=== PATIENT | female | born 1985 | race African-American/Black ===

== ENCOUNTER 2017-01-22 10:17 | Emergency (ER) ==
--- NOTE | 2017-01-22 11:21 | PROVIDER DOCUMENTATION ---
HPI-General Adult - General Source: patient - History of Present Illness -Gen Adult Nature of Presenting Problems: Pt is a 31 yof with bodyaches, achy intermittent lower abd pain and sharp shooting right hip pain intermittently x few days. Denies any recent illness, sick contacts,or injuries. Denies dysuria,n,v,d. Last BM this am. Quality of Pain: reports: aching Severity: reports: moderate Onset/Duration: reports: 3 days ago Timing: reports: still present Similar Symptoms Previously?: No Recently seen or treated by another doctor?: No <Daniel Butts - Last Filed: 01/22/17 11:18> <Marie Collins - Last Filed: 01/22/17 12:23> - General Chief Complaint: Cold Symptoms Stated Complaint: FLU LIKE SX/HIP PX Time Seen by Provider: 01/22/17 11:05 Allergies/Adverse Reactions: Patient Allergies Allergy/AdvReac Type Severity Reaction Status Date / Time Penicillins Allergy RASH Verified 01/22/17 10:35 Sulfa (Sulfonamide Allergy RASH Verified 01/22/17 10:35 Antibiotics) [Sulfa(Sulfonamide Antibiotics)] Home Medications: Home Medication List Medication Instructions Recorded Confirmed Last Taken Type Nitrofurantoin [place]/Macrocryst 100 mg PO BID #20 capsule 01/22/17 Unknown Rx [Macrobid] Review of Systems - Adult - REVIEW OF SYSTEMS - ADULT Constitutional: denies: chills, fever, fatique Eyes: reports: no symptoms reported Ears, Nose, Mouth & Throat: denies: ear pain, sinus problem, throat pain Cardiovascular: denies: chest pain, irregular heart rate, orthopnea Respiratory: reports: no symptoms reported Gastrointestinal: reports: abdominal pain. denies: diarrhea, nausea, vomiting Genitourinary: reports: no symptoms reported Musculoskeletal: reports: see HPI, joint pain, muscle aches. denies: frequent leg cramps, joint swelling Integumentary: reports: no symptoms reported Neurological: reports: no symptoms reported Psychiatric: reports: no symptoms reported Endocrine: reports: no symptoms reported Hematologic/Lymphatic: reports: no symptoms reported Allergic/Immunologic: reports: no symptoms reported All Other Systems: Reviewed and Negative <Daniel Butts - Last Filed: 01/22/17 11:18> Past History - Adult - PAST MEDICAL HISTORY-ADULT Review of Records: reports: Nursing Assessment Review Major Childhood Illnesses: reports: denies history Cardiovascular: reports: denies history Respiratory: reports: denies history Gastrointestinal: reports: other (chronic constipation) Obstetrical/Gynecological: reports: other (previous pregnancies) Genitourinary: reports: denies history Musculoskeletal: reports: denies history Neurological: reports: denies history Endocrine/Immune: reports: other (sickle trait) Other Conditions: reports: denies history - PRIOR SURGERIES/PROCEDURES Surgical/Procedure History: reports: none - IMMUNIZATION STATUS Childhood Immunizations: See Nurse Assessment Flu Vaccine: See Nurse Assessment - FAMILY HISTORY Family History: reviewed, not pertinent - SOCIAL HISTORY Smoking: denies Substance Use: none/never <Daniel Butts - Last Filed: 01/22/17 11:18> Physical Exam-General - PHYSICAL EXAM-ADULT Initial Vital Signs Reviewed: Yes - CONSTITUTIONAL General Appearance: appears well, alert, no apparent distress - EYES Eyes: PERRL/EOMI, pink conjunctivae - HEAD, EARS, NOSE, MOUTH & THROAT HENMT: normocephalic/atraumatic, moist mucous membranes, normal ENT inspection - NECK Neck: non-tender, full range of motion, supple - RESPIRATORY Respiratory: lungs clear, normal breath sounds - CARDIOVASCULAR Cardiovascular: normal peripheral pulses, regular rate, rhythm - GASTROINTESTINAL (ABDOMEN) Abdominal Exam: normal bowel sounds, non tender, soft. negative: rebound, tenderness - MUSCULOSKELETAL Extremity: normal range of motion, normal capillary refill - SKIN Integumentary: normal color, normal turgor, warm/dry - PSYCHIATRIC Psych/Mental Status: normal mood/affect, oriented x 3 <Marie Collins - Last Filed: 01/22/17 12:23> Progress - PLAN OF CARE/RESULTS Progress/Plan/Lab Results: Orders Category Date Time Status DIRECT STREP PL Stat Lab 01/22/17 10:[address] Stat Lab 01/22/17 10:45 Received Vital Signs - 24 hr 01/22/17 10:30 Temperature 98.0 F Pulse Rate 79 Respiratory 20 Rate Blood Pressure 112/76 O2 Sat by Pulse 100 Oximetry Laboratory Tests 01/22/17 10:45 Group A Strep Rapid NEGATIVE <Daniel Butts - Last Filed: 01/22/17 11:18> - PLAN OF CARE/RESULTS Progress/Plan/Lab Results: Discussed care, diagnosis and need for follow-up, patient verbalized understanding <Marie Collins - Last Filed: 01/22/17 12:23> Departure <Daniel Butts - Last Filed: 01/22/17 11:18> - Departure Time of Disposition Order: 12:17 Certified Medical Emergency: Emergent <KarinaMarie Collins - Last Filed: 01/22/17 12:23> - Departure DIAGNOSIS: UTI (urinary tract infection) Qualifiers: Urinary tract infection type: site unspecified Hematuria presence: without hematuria Qualified Code(s): N39.0 - Urinary tract infection, site not specified Disposition: HOME 01 Condition: Stable Additional Instructions: ED Follow Up Instructions: You have been treated by a care provider in the Emergency Department. These instructions are being provided to you so you can have an understanding of how to care for yourself upon discharge. Upon discharge from the Emergency Department, you are responsible for making arrangements for follow-up care by a physician of your choice. Take all prescribed medications as directed. Return to the Emergency Department immediately for any new or worsening symptoms. You may call the Physician Referral phone number at [phone] to obtain a list of Physicians who are taking new patients. Prescriptions: Nitrofurantoin [place]/Macrocryst [Macrobid] 100 mg PO BID #20 capsule Attestation - Scribe Verification/Attestation Scribe:: Daniel Butts Acting as Scribe for:: Marie Collins Scribe documention review:: This chart was documented by a scribe and accurately reflects the service the provider performed and the decisions made by the provider. - Physician/ SAM Attestation Patient care was provided by Advanced Practice Provider:: Yes Advanced Practice Provider:: Marie Collins Advanced Practice Provider documentation review:: The Mid-level provider documentation, treatment plan and medical decision making was reviewed by the physician who agrees with all treatment and medical decision making by the MLP. <Daniel Butts - Last Filed: 01/22/17 11:18> Physician Attestation
[2017-01-22 11:42] LABS: MANUAL DIFF NEEDED? NO
[2017-01-22 11:45] LABS: URINE SOURCE CLEAN CATCH
[2017-01-22 11:46] LABS: BASO% 0.4 % (0.0-0.8); EOS# 0.09 X1000 (0.0-0.7); EOS% 1.6 % (0.0-10.0); HEMATOCRIT 38.3 % (37.0-47.0); HEMOGLOBIN 12.9 g/dL (12.0-16.0); IMM GRAN# 0.01 X1000 (0.0-0.04); IMM GRAN% 0.2 % (0.0-0.5); LYMPH# 2.07 X1000 (1.2-3.4); LYMPH% 36.9 % (20.5-51.1); MCH 30.6 PG (27-31); MCHC 33.7 g/dL (33-37); MCV 90.8 FL (81-99); MONO# 0.35 X1000 (0.11-0.59); MONO% 6.2 % (1.7-9.3); MPV 8.9 FL (7.4-10.4); NEUT% 54.7 % (42.2-75.2); PLT 372 X1000 (130-400); RBC 4.22 XMIL (4.2-5.4)
[2017-01-22 11:58] LABS: BILIRUBIN URINE NEGATIVE (NEGATIVE); BLOOD URINE NEGATIVE (NEGATIVE); CLARITY SL. CLOUDY (CLEAR); COLOR YELLOW; GLUCOSE URINE NEGATIVE (NEGATIVE); LEUKOCYTES URINE NEGATIVE (NEGATIVE); NITRITE URINE NEGATIVE (NEGATIVE); PROTEIN URINE NEGATIVE (NEGATIVE); SP GRAVITY URINE 1.015; URINE MICROSCOPIC NEEDED? YES; UROBILINOGEN URINE NORMAL
[2017-01-22 12:12] LABS: URINE EPITHELIAL CELLS <10 /HPF (<10)
[2017-01-22 12:39] VITALS: BP 118/78
== END 2017-01-22 12:39 | disposition home or self-care (01) ==
LOC: P.ED 10:17
DX: N39.0 Urinary tract infection, site not specified (principal); M79.1 Myalgia; R10.30 Lower abdominal pain, unspecified; M25.551 Pain in right hip; K59.00 Constipation, unspecified; D57.3 Sickle-cell trait
CPT/HCPCS: 36415; 81001; 81025; 85025; 87081; 87430; 87804; 99283